=== PATIENT | female | born 1980 | race Caucasian/White ===

== ENCOUNTER 2019-05-24 08:06 | Outpatient (CLI) | payer OTHER ==
[2019-05-24] MEDS ORDERED: MULT1TAB60 PO (09:37)
== END 2019-05-24 23:59 | disposition home or self-care (01) ==
LOC: STAR 08:06
PROVIDERS: ATTEND Obstetrics & Gynecology Female Pelvic Medicine and Reconstructive Surgery
DX: Z02.9 Encounter for administrative examinations, unspecified (principal)

== ENCOUNTER 2019-05-28 10:05 | Day surgery (SDC) | payer OTHER ==
[~2019-05-28] VITALS: Ht 175.3 cm; Wt 78.4 kg
[~2019-05-28 10:05] MED LIST: MULT1TAB60 PO
[2019-05-28] MEDS ORDERED: LACTATED RINGERS 1,000 ML IV SCH ×2 (10:15→14:22)
[2019-05-28 10:29] VITALS: BP 118/82
[2019-05-28] MEDS ORDERED: LIDOCAINE-MPF 1%, 2ML INFIL ONE (10:30)
[2019-05-28] MEDS ORDERED: LORazepam 2 MG/ML, 1ML IVPush PRN (10:30)
[2019-05-28] MEDS ORDERED: MEPERIDINE/PF 25MG/ML,1ML IVPush PRN (10:30)
[2019-05-28] MEDS ORDERED: HYDROmorphone 2 MG/ML, 1ML IVPush PRN (10:30)
[2019-05-28] MEDS ORDERED: ONDANSETRON 2MG/ML, 2ML IV PRN (10:30)
[2019-05-28] MEDS ORDERED: LABETALOL 5MG/ML, 20ML IV PRN (10:30)
[2019-05-28] MEDS ORDERED: hydrALAzine 20 MG/ML, 1ML IV PRN (10:30)
[2019-05-28] MEDS ORDERED: OXYcodone 5 MG/5 ML ORAL.SOL UDC PO PRN (10:30)
[2019-05-28] MEDS ORDERED: GABAPENTIN 300 MG CAPSULE PO ONE (10:30)
[2019-05-28] MEDS ORDERED: ACETAMINOPHEN 500 MG TABLET PO ONE (10:30)
[2019-05-28] MEDS ORDERED: ONDANSETRON 2MG/ML, 2ML ONE ×2 (10:33→15:32)
[2019-05-28] MEDS ORDERED: MIDAZOLAM 1 MG/ML, 2ML ONE (10:33)
[2019-05-28] MEDS ORDERED: SODIUM CHLORIDE 0.9% PF 10ML ONE (10:33)
[2019-05-28] MEDS ORDERED: DEXAMETHASONE 4 MG/ML, 1ML ONE ×2 (10:33)
[2019-05-28] MEDS ORDERED: LIDOCAINE-MPF 2% ,5ML ONE (10:33)
[2019-05-28] MEDS ORDERED: FENTANYL PF 250 MCG/5ML ONE (10:33)
[2019-05-28] MEDS ORDERED: CEFAZOLIN 1,000 MG ONE ×2 (10:33)
[2019-05-28] MEDS ORDERED: PROPOFOL 10 MG/ML, 20ML ONE (10:33)
[2019-05-28] MEDS ORDERED: ROCURONIUM 10MG/ML,5ML ONE (10:33)
[2019-05-28 10:46] LABS: HCG UR SG 1.014 (1.003-1.030)
[2019-05-28] MEDS ORDERED: BUPIVACAINE/PF 0.25% ONE ×2 (11:18→12:19)
[2019-05-28] MEDS ORDERED: NEOMY/POLYMYXIN B GU IRR. 1 ML ONE (11:22)
[2019-05-28] MEDS ORDERED: INDIGO CARMINE 0.8%, 5ML ONE (12:19)
[2019-05-28] MEDS ORDERED: NEOSTIGMINE 1 MG/ML, 10ML ONE (13:23)
[2019-05-28] MEDS ORDERED: GLYCOPYRROLATE 0.2MG/1ML, 5ML ONE (13:23)
[2019-05-28] MEDS ORDERED: PROMETHAZINE 25 MG SUPP PR ONE ×2 (14:30→19:01)
[2019-05-28] MEDS ORDERED: ONDANSETRON 2MG/ML, 2ML IVPush PRN (14:30)
[2019-05-28] MEDS ORDERED: IBUPROFEN 600 MG TABLET PO PRN (14:30)
[2019-05-28] MEDS ORDERED: HYDROcodone/APAP 5/325 TABLET PO PRN (14:30)
[2019-05-28] MEDS ORDERED: OXYcodone 5 MG/5 ML ORAL.SOL UDC ONE (14:36)
[2019-05-28] MEDS ORDERED: FENTANYL PF 100 MCG/2ML ONE (14:36)
[2019-05-28] MEDS: FENTANYL PF 100 MCG/2ML IV PRN ×2 (14:48→15:07)
== END 2019-05-28 19:20 | disposition home or self-care (01) ==
LOC: OUT 10:05
PROVIDERS: ATTEND Obstetrics & Gynecology Female Pelvic Medicine and Reconstructive Surgery
DX: N92.0 Excessive and frequent menstruation with regular cycle (principal); D25.9 Leiomyoma of uterus, unspecified; N39.3 Stress incontinence (female) (male); N83.8 Other noninflammatory disorders of ovary, fallopian tube and broad ligament; N80.0 Endometriosis of uterus; N80.8 Other endometriosis; Z82.49 Family history of ischemic heart disease and other diseases of the circulatory system; Z84.2 Family history of other diseases of the genitourinary system
CPT/HCPCS: 22900; 57288; 58552; 81025; 88305; 88307; C1771; J0690; J1100; J2250; J2405; J2704; J2710; J3010; J3490; J7120; S2900